=== PATIENT | female | born 1995 | race Two or more races ===

== ENCOUNTER 2016-08-16 10:50 | Inpatient (IN) | payer BC ==
[2016-08-16] MEDS ORDERED: Ondansetron 4 MG/2 ML SDV IVPUSH PRN (11:19)
[2016-08-16] MEDS ORDERED: Sodium Chloride 0.9% 10 ML Syringe FLUSH PRN (11:19)
[2016-08-16] MEDS ORDERED: Nalbuphine 20 MG/1 ML Amp IVPUSH PRN (11:19)
[2016-08-16] MEDS ORDERED: Ampicillin 2 GM in Sodium Chloride 0.9% 100 ML IV ONE (11:30)
[2016-08-16] MEDS ORDERED: Oxytocin/Lactated Ringers 10 UNIT/1,000 ML BAG IV SCH ×2 (11:30)
[2016-08-16] MEDS: Lactated Ringers 1,000 ML IV SCH ×3 (11:44→16:18)
[2016-08-16] MEDS ORDERED: diphenhydrAMINE 50 MG/ML SDV IVPUSH PRN (13:33)
[2016-08-16] MEDS ORDERED: ePHEDrine 50 MG/ML SDV IVPUSH PRN (13:33)
[2016-08-16] MEDS ORDERED: fentaNYL 100 MCG/2 ML SDV EPIDUR PRN (13:33)
[2016-08-16] MEDS ORDERED: Bupivacaine/fentaNYL/NS 100 ML Bag EPIDUR SCH (13:45)
--- NOTE | 2016-08-16 14:05 | PCM.PREANE ---
Preanesthetic Assessment - Anesthesia/Transfusion/Family Hx Anesthesia History: Prior Anesthesia Without Reaction Transfusion History: No Prior Transfusion(s) - Review of Systems General: No Symptoms Pulmonary: No Symptoms Cardiovascular: No Symptoms Gastrointestinal: No symptoms Neurological: No Symptoms Other: Reports: None - Physical Assessment Pulse: 89 O2 Sat by Pulse Oximetry: 99 Respiratory Rate: 16 Blood Pressure: 117/76 Temperature: 36.4 C Vital Signs: Last Vital Signs Temp 36.4 C 08/16/16 11:15 Pulse 89 08/16/16 11:15 Resp 16 08/16/16 11:15 BP 117/76 08/16/16 11:15 Pulse Ox 99 08/16/16 11:15 Height: 1.57 m Weight: 72.62 kg ASA Class: 2 Mental Status: Alert & Oriented x3 Airway Class: Mallampati = 1 Dentition: Reports: Normal Dentition Thyro-Mental Finger Breadths: 3 Mouth Opening Finger Breadths: 3 ROM/Head Extension: Full Lungs: Clear to auscultation, Normal respiratory effort Cardiovascular: Regular Rate, Regular Rhythm, No Murmurs - Lab Values: Laboratory Last Values WBC 11.07 K/mm3 (3.98-10.04) H 08/16/16 11:40 RBC 3.58 M/mm3 (3.98-5.22) L 08/16/16 11:40 Hgb 10.7 gm/L (11.2-15.7) L 08/16/16 11:40 Hct 31.8 % (34.1-44.9) L 08/16/16 11:40 MCV 88.8 fl (79.4-94.8) 08/16/16 11:40 MCH 29.9 pg (25.6-32.2) 08/16/16 11:40 MCHC 33.6 g/dl (32.2-35.5) 08/16/16 11:40 RDW Std Deviation 43.5 fL (36.4-46.3) 08/16/16 11:40 Plt Count 362 K/mm3 (182-369) 08/16/16 11:40 MPV 9.9 fl (9.4-12.3) 08/16/16 11:40 Neut % (Auto) 66.9 % (34.0-71.1) 08/16/16 11:40 Lymph % (Auto) 24.9 % (19.3-51.7) 08/16/16 11:40 [place]ink % (Auto) 6.8 % (4.7-12.5) 08/16/16 11:40 Eos % (Auto) 0.2 (0.7-5.8) L 08/16/16 11:40 Baso % (Auto) 0.2 % (0.1-1.2) 08/16/16 11:40 Neut # (Auto) 7.41 K/mm3 (1.56-6.13) H 08/16/16 11:40 Lymph # (Auto) 2.76 K/mm3 (1.18-3.74) 08/16/16 11:40 Spink # (Auto) 0.75 K/mm3 (0.24-0.36) H 08/16/16 11:40 Eos # (Auto) 0.02 K/mm3 (0.04-0.36) L 08/16/16 11:40 Baso # (Auto) 0.02 K/mm3 (0.01-0.08) 08/16/16 11:40 Manual Slide Review Abnormal smear 08/16/16 11:40 - Allergies Allergies/Adverse Reactions: Allergies Allergy/AdvReac Type Severity Reaction Status Date / Time No Known Allergies Allergy Verified 08/16/16 11:16 - Anesthesia Plan Pre-Op Medication Ordered: None - Acknowledgements Anesthesia Type Planned: Epidural Pt an Appropriate Candidate for the Planned Anesthesia: Yes Alternatives and Risks of Anesthesia Discussed w Pt/Guardian: Yes Pt/Guardian Understands and Agrees with Anesthesia Plan: Yes PreAnesthesia Questionnaire - Past Health History Medical/Surgical History: Denies Medical/Surgical History Gastrointestinal History: Reports: GERD 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: - Past Surgical History Dermatological Surgical History: Reports: Other (see below) - SUBSTANCE USE Smoking Status *Q: Former Smoker Tobacco Use Within Last Twelve Months: Cigarettes Recreational Drug Use History: No - HOME MEDS Home Medications: Home Meds PNV95/Ferrous Fumarate/FA [ Vitamin Tablet] 1 tab PO DAILY 08/16/16 [ History] - CURRENT (IN HOUSE) MEDS Current Meds: Current Medications Diphenhydramine HCl (Benadryl) 25 mg IVPUSH Q6H PRN PRN Reason: Itching Ephedrine Sulfate (Ephedrine Sulfate) 5 mg IVPUSH ASDIRECTED PRN PRN Reason: HYPOTENTSION Fentanyl (Sublimaze) 100 mcg EPIDUR Q3H PRN PRN Reason: PAIN Last Admin: 08/16/16 13:44 Dose: 100 mcg Fentanyl/Bupivacaine HCl (Fentanyl/Bupivacaine/Ns 2 Mcg-0.125% 100 Ml) 100 ml EPIDUR ASDIRECTED [facility] Last Admin: 08/16/16 13:45 Dose: 100 ml Ampicillin Sodium 1 gm/ Sodium (Chloride) 100 mls @ 200 mls/hr IV Q4H JULI Lactated Ringer's (Ringers, Lactated) 1,000 mls @ 100 mls/hr IV ASDIRECTED [facility] Last Admin: 08/16/16 11:44 Dose: 100 mls/hr Oxytocin/Lactated Ringer's (Pitocin In Lr 10 Units/1,000 Ml) 10 unit in 1,000 mls @ 500 mls/hr IV TITRATE [facility] Oxytocin/Lactated Ringer's (Pitocin In Lr 10 Units/1,000 Ml) 10 unit in 1,000 mls @ 12 mls/hr IV TITRATE [facility] PRN Reason: 2 MUNITS/MIN Lidocaine HCl (Xylocaine 1%) 50 ml INJECT ONETIME ONE Stop: 08/16/16 15:01 Nalbuphine HCl (Nubain) 10 mg IVPUSH Q2H PRN PRN Reason: Pain (moderate 4-6) Ondansetron HCl (Zofran) 4 mg IVPUSH Q4H PRN PRN Reason: Nausea/Vomiting Sodium Chloride (Saline Flush) 10 ml FLUSH ASDIRECTED PRN PRN Reason: Keep Vein Open Discontinued Medications Ampicillin Sodium 2 gm/ Sodium (Chloride) 100 mls @ 200 mls/hr IV ONETIME ONE Stop: 08/16/16 11:59 Last Admin: 08/16/16 11:44 Dose: 200 mls/hr
[2016-08-16] MEDS ORDERED: Lidocaine 1% 50 ML MDV INJECT ONE (15:00)
[2016-08-16] MEDS: Ampicillin 1 GM in Sodium Chloride 0.9% 100 ML IV SCH (15:13)
[2016-08-16] MEDS ORDERED: Lanolin 100% Cream 7 GM Tube TOP PRN (19:54)
[2016-08-16] MEDS ORDERED: Witch Hazel Medicated Pads 100/Jar TOP PRN (19:54)
[2016-08-16] MEDS ORDERED: Benzocaine/Menthol 20%-0.5% Spray 56 GM Canister TOP PRN (19:54)
[2016-08-16] MEDS ORDERED: Hydrocortisone Acetate 25 MG Supp RECTAL PRN (19:54)
[2016-08-16] MEDS: Ibuprofen 600 MG Tab PO PRN (20:25)
[2016-08-16] MEDS: Docusate Sodium 100 MG Cap PO PRN (20:25)
[2016-08-16] MEDS ORDERED: Bupivacaine 0.25% 10 ML SDV ONE (22:22)
[2016-08-17] MEDS: Ampicillin 1 GM in Sodium Chloride 0.9% 100 ML IV SCH (01:41)
[2016-08-17] MEDS: Ibuprofen 600 MG Tab PO PRN ×3 (03:39→16:20)
--- NOTE | 2016-08-17 08:23 | PCM48HPAN ---
Post Anesthesia Note - EVALUATION WITHIN 48HRS OF ANESTHETIC Vital Signs in Normal Range: Yes Patient Participated in Evaluation: Yes Respiratory Function Stable: Yes Airway Patent: Yes Cardiovascular Function Stable: Yes Hydration Status Stable: Yes Pain Control Satisfactory: Yes Nausea and Vomiting Control Satisfactory: Yes Mental Status Recovered: Yes
[2016-08-17] MEDS ORDERED: Acetaminophen 325 MG Tab PO PRN (11:20)
[2016-08-17] MEDS: Acetaminophen/Codeine 300-30 MG Tab PO PRN ×2 (11:28→22:59)
[2016-08-18 06:08] VITALS: BP 94/51
[2016-08-18] MEDS: Ibuprofen 600 MG Tab PO PRN (06:36)
[2016-08-18] MEDS: Docusate Sodium 100 MG Cap PO PRN (06:36)
[2016-08-18] MEDS ORDERED: Measles, Mumps & Rubella Vaccine 0.5 ML SDV SUBCUT ONE (08:19)
--- NOTE | 2016-08-18 10:20 | PCM.DCSUM1 ---
Discharge Summary - Hospital Course Free Text/Narrative:: First degree laceration at [address] Almonte 08/16/2016. HPI Initial Comments: First degree laceration at [address] Almonte 08/16/2016. Brief History: First degree laceration at [address] Almonte 08/16/2016. - Discharge Data Discharge Date: 08/18/16 Discharge Disposition: Home, Self-Care 01 Condition: Good - Discharge Diagnosis/Problem(s) (1) 38 weeks gestation of SNOMED Code(s): 93554788 ICD Code: Z3A.38 - 38 WEEKS GESTATION OF Status: Acute Current Visit: Yes (2) First degree laceration of perineum, delivered, current hospitalization SNOMED Code(s): 507125602 ICD Code: O70.0 - FIRST DEGREE PERINEAL LACERATION DURING DELIVERY Status: Acute Current Visit: Yes - Patient Summary/Data Complications: none Consults: none Hospital Course: uneventful - Patient Instructions Diet: Heart Healthy Diet Driving: Do Not Drive (x48 hrs) Showering/Bathing: May Shower Notify Provider of: Fever, Increased Pain, Swelling and Redness, Drainage, Nausea and/or Vomiting - Discharge Plan Home Medications: Home Meds PNV95/Ferrous Fumarate/FA [ Vitamin Tablet] 1 tab PO DAILY 08/16/16 [ History] Benzocaine/Menthol [Dermoplast Pain Relief [place]] 1 spray TOP ASDIRECTED PRN #0 canister 08/18/16 [Rx] Docusate Sodium [Colace] 100 mg PO BID PRN #0 cap 08/18/16 [Rx] Ibuprofen [IJD: Ibuprofen] 200 - 600 mg PO Q6H PRN #0 tablet 08/18/16 [Rx] Witch Starla [Tucks] 1 pad TOP ASDIRECTED PRN #0 pad 08/18/16 [Rx] Referrals: Mary Lou Almonte MD [Physician] - ([address] Almonte's Office Saturday about a note for mom to come) - Discharge Summary/Plan Comment DC Time >30 min.: No - Patient Data Vitals - Most Recent: Last Vital Signs Temp 97.9 F 08/18/16 05:59 Pulse 58 L 08/18/16 05:59 Resp 16 08/18/16 05:59 BP 94/51 L 08/18/16 05:59 Pulse Ox 100 08/18/16 05:59 Weight - Most Recent: 160 lb 1.6 oz Med Orders - Current: Current Medications Acetaminophen/Codeine Phosphate (Tylenol With Codeine No.3 300mg/30mg) 2 tab PO Q6H PRN PRN Reason: Breakthrough Pain Last Admin: 08/17/16 22:59 Dose: 2 tab Benzocaine/Menthol (Dermoplast Pain Relief [place]) 0 gm TOP ASDIRECTED PRN PRN Reason: Perineal Comfort Measure Last Admin: 08/16/16 20:24 Dose: 1 container Docusate Sodium (Colace) 100 mg PO BID PRN PRN Reason: Constipation Last Admin: 08/18/16 06:36 Dose: 100 mg Emollient Ointment (Lansinoh Hpa) 0 gm TOP ASDIRECTED PRN PRN Reason: Sore Nipples Hydrocortisone Acetate (Anucort-Hc) 25 mg RECTAL BID PRN PRN Reason: Hemorrhoid pain Ibuprofen (Motrin) 600 mg PO Q6H PRN PRN Reason: Mild pain or fever Last Admin: 08/18/16 06:36 Dose: 600 mg Witch Starla (Tucks) 1 pad TOP ASDIRECTED PRN PRN Reason: Hemorrhoid pain Last Admin: 08/16/16 20:24 Dose: 1 container Discontinued Medications Diphenhydramine HCl (Benadryl) 25 mg IVPUSH Q6H PRN PRN Reason: Itching Ephedrine Sulfate (Ephedrine Sulfate) 5 mg IVPUSH ASDIRECTED PRN PRN Reason: HYPOTENTSION Fentanyl (Sublimaze) 100 mcg EPIDUR Q3H PRN PRN Reason: PAIN Last Admin: 08/16/16 13:44 Dose: 100 mcg Fentanyl/Bupivacaine HCl (Fentanyl/Bupivacaine/Ns 2 Mcg-0.125% 100 Ml) 100 ml EPIDUR ASDIRECTED [facility] Last Admin: 08/16/16 13:45 Dose: 100 ml Ampicillin Sodium 2 gm/ Sodium (Chloride) 100 mls @ 200 mls/hr IV ONETIME ONE Stop: 08/16/16 11:59 Last Admin: 08/16/16 11:44 Dose: 200 mls/hr Ampicillin Sodium 1 gm/ Sodium (Chloride) 100 mls @ 200 mls/hr IV Q4H [facility] Last Admin: 08/17/16 01:41 Dose: Not Given Lactated Ringer's (Ringers, Lactated) 1,000 mls @ 100 mls/hr IV ASDIRECTED [facility] Last Admin: 08/16/16 16:18 Dose: 100 mls/hr Oxytocin/Lactated Ringer's (Pitocin In Lr 10 Units/1,000 Ml) 10 unit in 1,000 mls @ 500 mls/hr IV TITRATE [facility] Last Admin: 08/16/16 18:30 Dose: 500 mls/hr Oxytocin/Lactated Ringer's (Pitocin In Lr 10 Units/1,000 Ml) 10 unit in 1,000 mls @ 12 mls/hr IV TITRATE [facility] PRN Reason: 2 MUNITS/MIN Lidocaine HCl (Xylocaine 1%) 50 ml INJECT ONETIME ONE Stop: 08/16/16 15:01 Last Admin: 08/17/16 01:41 Dose: Not Given Measles/Mumps/Rubella Vaccine Live (M-M-R Ii Vaccine) 0.5 ml SUBCUT .ONCE ONE Stop: 08/18/16 08:20 Last Admin: 08/18/16 08:36 Dose: 0.5 ml Nalbuphine HCl (Nubain) 10 mg IVPUSH Q2H PRN PRN Reason: Pain (moderate 4-6) Ondansetron HCl (Zofran) 4 mg IVPUSH Q4H PRN PRN Reason: Nausea/Vomiting Sodium Chloride (Saline Flush) 10 ml FLUSH ASDIRECTED PRN PRN Reason: Keep Vein Open *Q Meaningful Use (DIS) - VTE *Q VTE Criteria *Q: - Stroke *Q Stroke Criteria *Q: - AMI *Q AMI Criteria *Q:
--- NOTE | 2016-08-24 00:44 | PCM.LDHP ---
L&D History of Present Illness - General Date of Service: 08/18/16 Admit Problem/Dx: Patient Status Order with Admit Dx/Problem 08/16/16 18:29 Admission Status [Patient Status] [ADT] Routine Admission Diagnosis/Problem Admission Diagnosis/Problem Normal labor Source of Information: Patient History Limitations: Reports: No Limitations - History of Present Illness Introduction:: Term labor. Timing/Duration: Reports: seconds: Pain Score: 4 - Related Data Allergies/Adverse Reactions: Allergies Allergy/AdvReac Type Severity Reaction Status Date / Time No Known Allergies Allergy Verified 08/16/16 11:16 Home Medications: Home Meds PNV95/Ferrous Fumarate/FA [ Vitamin Tablet] 1 tab PO DAILY 08/16/16 [ History] Benzocaine/Menthol [Dermoplast Pain Relief [place]] 1 spray TOP ASDIRECTED PRN #0 canister 08/18/16 [Rx] Docusate Sodium [Colace] 100 mg PO BID PRN #0 cap 08/18/16 [Rx] Ibuprofen [IJD: Ibuprofen] 200 - 600 mg PO Q6H PRN #0 tablet 08/18/16 [Rx] Witch Starla [Tucks] 1 pad TOP ASDIRECTED PRN #0 pad 08/18/16 [Rx] Past Medical History - Past Health History Medical/Surgical History: Denies Medical/Surgical History Gastrointestinal History: Reports: GERD 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: - Past Surgical History Dermatological Surgical History: Reports: Other (see below) Social & Family History - Family History Family Medical History: Noncontributory - Tobacco Use Smoking Status *Q: Former Smoker Used Tobacco, but Quit: Yes Month Tobacco Last Used: 12/2015 - Caffeine Use Caffeine Use: Reports: None - Recreational Drug Use Recreational Drug Use: No H&P Review of Systems - Review of Systems: Review Of Systems: See Below General: Reports: No Symptoms HEENT: Reports: No Symptoms Pulmonary: Reports: No Symptoms Cardiovascular: Reports: No Symptoms Gastrointestinal: Reports: No Symptoms Genitourinary: Reports: No Symptoms Musculoskeletal: Reports: No Symptoms Skin: Reports: No Symptoms Psychiatric: Reports: No Symptoms Neurological: Reports: No Symptoms Hematologic/Lymphatic: Reports: No Symptoms Immunologic: Reports: No Symptoms L&D Exam - Exam Exam: See Below - Vital Signs Vital Signs: Last Vital Signs Temp 36.6 C 08/18/16 05:59 Pulse 58 L 08/18/16 05:59 Resp 16 08/18/16 05:59 BP 94/51 L 08/18/16 05:59 Pulse Ox 100 08/18/16 05:59 Weight: 72.62 kg - OB Specific Contraction Intensity: Mild to Moderate Movement: Active Heart Tones: Present Presentation: Vertex - Mata Score Mata Score Cervix Position: Midposition Mata Score Consistency: Medium Mata Score Effacement: 51-70% Mata Score Dilation: 3-4 cm Mata Score Infant's Station: -1 ,0 Mata Score Total: 8 - Exam General: Alert, Oriented HEENT: Conjunctiva Clear Neck: Supple Lungs: Clear to Auscultation Cardiovascular: Regular Rate, Regular Rhythm Abdomen: Normal Bowel Sounds Genitourinary: Normal external exam Back Exam: Normal Inspection, Full Range of Motion Extremities: Normal Inspection Skin: Warm, Dry, Intact - Patient Data Result Diagrams: 08/16/16 11:40 Problem List Initiated/Reviewed/Updated: Yes Assessment/Plan Comment:: Term labor Anticipate
== END 2016-08-18 11:15 | disposition home or self-care (01) | DRG 560 ==
LOC: JD.OBCHECK 10:50 → JD.OB 10:54 → JD.OBCHECK 11:18 → OBSVTOIN 11:19 → JD.OB 11:19
PROVIDERS: ADMIT Obstetrics & Gynecology; ATTEND Obstetrics & Gynecology
PROC: 10E0XZZ Delivery of Products of Conception, External Approach (ICD-10-PCS; principal; 2016-08-16)
PROC: 0HQ9XZZ Repair Perineum Skin, External Approach (ICD-10-PCS; 2016-08-16)
PROC: 10907ZC Drainage of Amniotic Fluid, Therapeutic from Products of Conception, Via Natural or Artificial Opening (ICD-10-PCS; 2016-08-16)
PROC: 00HU33Z Insertion of Infusion Device into Spinal Canal, Percutaneous Approach (ICD-10-PCS; 2016-08-16)
PROC: 3E0R3CZ (ICD-10-PCS; 2016-08-16)
PROC: 3E0234Z Introduction of Serum, Toxoid and Vaccine into Muscle, Percutaneous Approach (ICD-10-PCS; 2016-08-18)
DX: O99.824 Streptococcus B carrier state complicating childbirth (principal); O70.0 First degree perineal laceration during delivery; Z3A.39 39 weeks gestation of pregnancy; Z37.0 Single live birth; Z23 Encounter for immunization; Z87.891 Personal history of nicotine dependence
CPT/HCPCS: 01967; 36415; 85025; 90707; A9270-GY; J0290; J2590; J3010; J7030; J7120